=== PATIENT | female | born 1945 | race Hispanic/Latino ===

== ENCOUNTER 2016-05-08 17:02 | Inpatient (IN) | payer MEDICARE ==
--- NOTE | 2016-05-08 19:01 | Emergency Department Report ---
HPI - General Chief Complaint: Seizure Time Seen by Provider: 05/08/16 18:32 - HPI HPI: Room 16 The patient 71-year-old female presenting with chief complaint transient neurological event. History obtained from the patient's daughter who was present at the home events occurred. The daughter states the patient's last known well time was at 16:45. A family member later walked past the patient and spoke to her but the patient's speech sounded garbled. There were no other symptoms noted. There is no reported seizure activity. EMS was called secondary to the patient's garbled speech and was still present upon EMS arrival. Sometime between being transported to the ED and arrival to the ED the patient's speech returned to baseline. The patient is currently asymptomatic. Family states the patient with a history of polio as a child has been dragging her left lower extremity for years Location: [see above] Duration: [see above] Quality: Dysarthria Severity: Moderate Modifying factors: [see above] Context: [see above] Mode of transportation: [not driving] ED Past Medical Hx - Past Medical History Hx Hypertension: Yes Hx CVA: Yes Hx Seizures: Yes Hx COPD: Yes - Surgical History Past Surgical History?: No - Family History Family history: no significant - Social History Smoking Status: Current Every Day Smoker Substance Use Type: None, Alcohol - Medications Home Medications: Home Medications Medication Instructions Recorded Confirmed Last Taken Type Amlodipine Besylate 10 mg PO DAILY 05/08/16 05/08/16 Unknown History Hydralazine HCl [Apresoline TAB] 50 mg PO Q8HR 05/08/16 05/08/16 Unknown History cloNIDine [Catapres] 0.2 mg PO TID 05/08/16 05/08/16 Unknown History levETIRAcetam [Keppra TAB] 500 mg PO BID 05/08/16 05/08/16 Unknown History ED Review of Systems ROS: Stated complaint: SEIZURE Other details as noted in HPI Comment: All other systems reviewed and negative Constitutional: denies: chills, fever Eyes: denies: eye pain, eye discharge, vision change ENT: denies: ear pain, throat pain Respiratory: denies: cough, shortness of breath, wheezing Cardiovascular: denies: chest pain, palpitations Endocrine: no symptoms reported Gastrointestinal: denies: abdominal pain, nausea, diarrhea Genitourinary: denies: urgency, dysuria, discharge Musculoskeletal: denies: back pain, joint swelling, arthralgia Skin: denies: rash, lesions Neurological: other (dysarthria) Psychiatric: denies: anxiety, depression Hematological/Lymphatic: denies: easy bleeding, easy bruising Physical Exam - Physical Exam Vital Signs: Vital Signs 05/08/16 05/08/16 05/08/16 18:03 18:21 18:22 Temperature 97.7 F 97.7 F Pulse Rate 53 L 53 L Respiratory 17 17 Rate Blood Pressure 121/75 Blood Pressure 121/75 [Right] O2 Sat by Pulse 99 99 99 Oximetry Physical Exam: GENERAL: The patient is well-developed well-nourished elderly female lying on stretcher not appearing to be in acute distress. [] HEENT: Normocephalic. Atraumatic. Extraocular motions are intact. Patient has moist mucous membranes. NECK: Supple. Trachea midline CHEST/LUNGS: Clear to auscultation. There is no respiratory distress noted. HEART/CARDIOVASCULAR: Regular. There is no tachycardia. There is no gallop rub or murmur. ABDOMEN: Abdomen is soft, nontender. Patient has normal bowel sounds. There is no abdominal distention. SKIN: There is no rash. There is no edema. There is no diaphoresis. NEURO: The patient is awake, alert, and oriented. The patient is cooperative. The patient has no focal neurologic deficits. The patient has normal speech. Cranial nerves II through XII grossly intact, no drift, foundation digger equal bilaterally. Normal sensation throughout with the exception of the left lower extremity (chronic). Left lower extremities weakness (chronic). MUSCULOSKELETAL: There is no evidence of acute injury. ED Course Vital Signs 05/08/16 05/08/16 05/08/16 18:03 18:21 18:22 Temperature 97.7 F 97.7 F Pulse Rate 53 L 53 L Respiratory 17 17 Rate Blood Pressure 121/75 Blood Pressure 121/75 [Right] O2 Sat by Pulse 99 99 99 Oximetry ED Medical Decision Making - Lab Data Result diagrams: 05/08/16 18:58 05/08/16 18:58 Laboratory Tests 05/08/16 05/08/16 05/08/16 18:58 18:58 18:58 WBC 5.4 RBC 3.84 Hgb 11.7 Hct 35.1 MCV 92 MCH 31 MCHC 33 RDW 14.9 Plt Count 207 Lymph % (Auto) 22.3 Jefferson % (Auto) 5.4 Eos % (Auto) 1.0 Baso % (Auto) 0.5 Lymph # 1.2 Jefferson # 0.3 Eos # 0.1 Baso # 0.0 Seg Neutrophils % 70.8 H Seg Neutrophils # 3.9 PT 12.5 INR 0.94 APTT 35.6 Sodium 140 Potassium 5.1 H Chloride 105.3 Carbon Dioxide 22 Anion Gap 18 BUN 27 H Creatinine 2.0 H Estimated GFR 25 BUN/Creatinine Ratio 13.50 Glucose 107 H Calcium 9.0 Total Creatine Kinase 86 CK-MB (CK-2) 1.6 CK-MB (CK-2) Rel Index 1.8 Troponin T < 0.010 - EKG Data -: EKG Interpreted by Nv EKG shows normal: sinus rhythm Rate: normal - EKG Data When compared to previous EKG there are: previous EKG unavailable Interpretation: other (no ischemic changes seen) - Radiology Data Radiology results: report reviewed (CT head), image reviewed (CT head) CT head (read by radiologist)-previous aneurysm clipping in the left posterior fossa. Deep white matter lucency consistent with fairly extensive chronic microvascular ischemic disease. No evidence of acute infarct or intracranial hemorrhage. - Differential Diagnosis TIA, CVA, ICH Critical care attestation.: If time is entered above; I have spent that time in minutes in the direct care of this critically ill patient, excluding procedure time. ED Disposition Clinical Impression: TIA (transient ischemic attack) Disposition: OP ADMITTED IP TO THIS HOSP Is pt being admited?: Yes Does the pt Need Aspirin: Yes Condition: Fair Referrals: PRIMARY CARE, [Primary Care Provider] - 3-5 Days Time of Disposition: 20:47 (hospitalist notified)
[2016-05-08 19:22] LABS: Basophils % (Auto) 0.5 % (0.0-1.8); Hematocrit 35.1 % (30.3-42.9); Hemoglobin 11.7 gm/dl (10.1-14.3); Mean Corpuscular HGB Conc 33 % (30-34); Mean Corpuscular Hemoglobin 31 pg (28-32); Mean Corpuscular Volume 92 fl (79-97); Platelet Count 207 K/mm3 (140-440); Red Blood Count 3.84 M/mm3 (3.65-5.03); Red Cell Distribution Width 14.9 % (13.2-15.2); White Blood Count 5.4 K/mm3 (4.5-11.0)
[2016-05-08 19:28] LABS: INR 0.94 (0.87-1.13)
[2016-05-08 19:29] LABS: Partial Thromboplastin Time 35.6 Sec. (24.2-36.6)
[2016-05-08 19:35] LABS: Creatine Kinase MB 1.6 ng/mL (0.0-4.0)
[2016-05-08 19:36] LABS: Blood Urea Nitrogen 27 mg/dL (7-17); Carbon Dioxide 22 mmol/L (22-30); Chloride 105.3 mmol/L (98-107); Creatine Kinase 86 units/L (30-135); Glucose 107 mg/dL (65-100); Potassium 5.1 mmol/L (3.6-5.0); Sodium 140 mmol/L (137-145)
--- NOTE | 2016-05-08 19:36 | Cat Scan Report ---
FINAL REPORT EXAM: CT HEAD/BRAIN WO CON HISTORY: dysarthria TECHNIQUE: CT was performed from the foramen magnum through the vertex in the axial plane without the use of intravenous contrast. PRIORS: None. FINDINGS: There is an aneurysm clip in the left paramedian cephalic cistern. There is deep white matter lucency consistent with fairly extensive chronic microvascular ischemic. There is no mass lesion or mass effect. There are no abnormal extra-axial fluid collections. There is no evidence of acute intracranial hemorrhage or infarct. The ventricles are of normal size and configuration for age. The skull and orbits are unremarkable. The visualized paranasal sinuses are clear. IMPRESSION: 1. Previous aneurysm clipping in the left posterior fossa 2. Deep white matter lucency consistent with fairly extensive chronic microvascular ischemic disease 3. No evidence of acute infarct or intracranial hemorrhage
[2016-05-08 19:49] LABS: Anion Gap 18 mmol/L
[2016-05-08] MEDS ORDERED: ASPIRIN PO ONE (20:49)
--- NOTE | 2016-05-08 21:45 | History and Physical Report ---
History of Present Illness Chief complaint: slurred speech History of present illness: 71 YO Female with HTN, CVA, Seizure DO, COPD, Nicotine Dependence, Brain Aneurysm S/P Clipping presents to ED for evaluation. Pt denies any complaints at time of exam. Pt daughter states the patient's last known well time was at 16:45. A family member later walked past the patient and spoke to her but noticed that the patient's speech sounded garbled. EMS notified and patient transported to ED. Pt speech normalized en route. Pt denies fever, chills, CP, Palpitations, syncope, loss of bowel/bladder continence, recent ill contacts, cough,shortness of breath, seizure, vertigo, or recent ill contacts. Past History Past Medical History: COPD, hyperlipidemia, seizures, stroke Past Surgical History: Other (brain surgery) Social history: single, lives with family, smoking. denies: alcohol abuse, prescription drug abuse Family history: no significant family history, other (reviewed) Medications and Allergies Allergies Allergy/AdvReac Type Severity Reaction Status Date / Time No Known Allergies Allergy Verified 05/08/16 22:08 Home Medications Medication Instructions Recorded Confirmed Last Taken Type Amlodipine Besylate 10 mg PO DAILY 05/08/16 05/08/16 Unknown History Hydralazine HCl [Apresoline TAB] 50 mg PO Q8HR 05/08/16 05/08/16 Unknown History cloNIDine [Catapres] 0.2 mg PO TID 05/08/16 05/08/16 Unknown History levETIRAcetam [Keppra TAB] 500 mg PO BID 05/08/16 05/08/16 Unknown History Review of Systems All systems: negative Constitutional: other (slurred speech) Exam - Constitutional Vitals: Temp Pulse Resp BP Pulse Ox 97.7 F 53 L 17 121/75 99 05/08/16 18:22 05/08/16 18:22 05/08/16 18:22 05/08/16 18:22 05/08/16 18:22 General appearance: Present: cachectic - EENT Eyes: Present: PERRL ENT: hearing intact, clear oral mucosa - Neck Neck: Present: supple, normal ROM - Respiratory Respiratory effort: normal Respiratory: bilateral: CTA - Cardiovascular Heart Sounds: Present: S1 & S2. Absent: rub, click - Extremities Extremities: pulses symmetrical, No edema Peripheral Pulses: within normal limits - Abdominal General gastrointestinal: Present: soft, non-tender, non-distended, normal bowel sounds Female genitourinary: Present: normal - Integumentary Integumentary: Present: clear, warm, dry, decreased turgor - Musculoskeletal Musculoskeletal: gait normal, strength equal bilaterally - Psychiatric Psychiatric: appropriate mood/affect, intact judgment & insight - Neurologic Neurologic: CNII-XII intact, moves all extremities Results - Labs CBC & Chem 7: 05/08/16 18:58 05/08/16 18:58 Labs: Abnormal lab results 05/08/16 05/08/16 Range/Units 18:58 18:58 Seg Neutrophils % 70.8 H (40.0-70.0) % Potassium 5.1 H (3.6-5.0) mmol/L BUN 27 H (7-17) mg/dL Creatinine 2.0 H (0.7-1.2) mg/dL Glucose 107 H (65-100) mg/dL Assessment and Plan - Patient Problems (1) TIA (transient ischemic attack) Current Visit: Yes Status: Acute Plan to address problem: Stroke protocol: CT Head, MRI/MRA Head, Echo, carotid doppler, antiplatelet therapy (2) COPD (chronic obstructive pulmonary disease) Current Visit: Yes Status: Chronic Plan to address problem: continue current therapy, no exacerbation at this time. (3) Seizure Current Visit: Yes Status: Acute Plan to address problem: keppra level, supportive care, (4) HTN (hypertension) Current Visit: Yes Status: Acute Plan to address problem: monitor bp q shift, (5) Nicotine dependence Current Visit: Yes Status: Acute Plan to address problem: Pt counseled, Pt refused to pick quit date. (6) DVT prophylaxis Current Visit: Yes Status: Acute
[2016-05-08] MEDS ORDERED: SODIUM CHLORIDE FLUSH SYRINGE 10 ML IV PRN (22:01)
[2016-05-08] MEDS ORDERED: TYLENOL PO PRN (22:01)
[2016-05-08] MEDS ORDERED: ZOFRAN IV PRN (22:01)
[2016-05-09] MEDS ORDERED: NON-FORMULARY (Hydralazine Hcl [Apresoline Tab] 50 MG) PO SCH (06:00)
[2016-05-09] MEDS: APRESOLINE PO SCH ×2 (06:13→18:29)
[2016-05-09] MEDS ORDERED: NON-FORMULARY (Amlodipine Besylate 10 MG) PO SCH (10:00)
[2016-05-09 10:12] LABS: Chloride 106.9 mmol/L (98-107); Potassium 4.4 mmol/L (3.6-5.0)
[2016-05-09] MEDS: ASPIRIN PO SCH (11:03)
[2016-05-09] MEDS: CATAPRES PO SCH ×3 (11:03→20:00)
[2016-05-09] MEDS: KEPPRA PO SCH ×2 (11:03→22:00)
[2016-05-09] MEDS: NORVASC PO SCH (11:04)
--- NOTE | 2016-05-09 13:00 | Progress Note ---
Assessment and Plan Assessment and plan: Slurred speech. Acute ischemic stroke vs TIA. Aspirin. Echo ordered, Carotid Doppler. MRI Brain could not done because of cerebral aneurysm clips. Seizure disorder. On Keppra Hypertension. BP stable on Norvasc, Clonidine and Hydralazine. History of stroke History of Cerebral aneursm s/p clipping. COPD. Stable. DVT Prophylaxis. SCDs only. She is ambulatory. Has history of cerebral aneuyrsm. Full code status. History Interval history: Slurred speech improving, no localized weakness of any extremity Hospitalist Physical - Physical exam Narrative exam: Gen: Awake, not in acute distress HEENT: Normocephalic, atraumatic Neck :supple, no JVD Lungs: Clear to auscultation bilaterally, no crackles or wheeze. Heart: S1 and S2 regular, no murmurs no gallop Abdomen:soft, non-tender, non-distended, normal bowel sounds Ext: No edema, no clubbing or cyanosis Neuro: Awake alert oriented x 3, slurred speech, no focal weakness - Constitutional Vitals: Temp Pulse Resp BP Pulse Ox 98.8 F 62 14 129/69 97 05/09/16 08:01 05/09/16 08:01 05/09/16 08:01 05/09/16 08:01 05/09/16 08:01 General appearance: Present: cachectic Results - Labs CBC & Chem 7: 05/08/16 18:58 05/09/16 07:02 Labs: Laboratory Last Values WBC 5.4 K/mm3 (4.5-11.0) 05/08/16 18:58 RBC 3.84 M/mm3 (3.65-5.03) 05/08/16 18:58 Hgb 11.7 gm/dl (10.1-14.3) 05/08/16 18:58 Hct 35.1 % (30.3-42.9) 05/08/16 18:58 MCV 92 fl (79-97) 05/08/16 18:58 MCH 31 pg (28-32) 05/08/16 18:58 MCHC 33 % (30-34) 05/08/16 18:58 RDW 14.9 % (13.2-15.2) 05/08/16 18:58 Plt Count 207 K/mm3 (140-440) 05/08/16 18:58 Lymph % (Auto) 22.3 % (13.4-35.0) 05/08/16 18:58 Benson % (Auto) 5.4 % (0.0-7.3) 05/08/16 18:58 Eos % (Auto) 1.0 % (0.0-4.3) 05/08/16 18:58 Baso % (Auto) 0.5 % (0.0-1.8) 05/08/16 18:58 Lymph # 1.2 K/mm3 (1.2-5.4) 05/08/16 18:58 Benson # 0.3 K/mm3 (0.0-0.8) 05/08/16 18:58 Eos # 0.1 K/mm3 (0.0-0.4) 05/08/16 18:58 Baso # 0.0 K/mm3 (0.0-0.1) 05/08/16 18:58 Seg Neutrophils % 70.8 % (40.0-70.0) H 05/08/16 18:58 Seg Neutrophils # 3.9 K/mm3 (1.8-7.7) 05/08/16 18:58 PT 12.5 Sec. (12.2-14.9) 05/08/16 18:58 INR 0.94 (0.87-1.13) 05/08/16 18:58 APTT 35.6 Sec. (24.2-36.6) 05/08/16 18:58 Sodium 142 mmol/L (137-145) 05/09/16 07:02 Potassium 4.4 mmol/L (3.6-5.0) 05/09/16 07:02 Chloride 106.9 mmol/L (98-107) 05/09/16 07:02 Carbon Dioxide 20 mmol/L (22-30) L 05/09/16 07:02 Anion Gap 20 mmol/L 05/09/16 07:02 BUN 27 mg/dL (7-17) H 05/09/16 07:02 Creatinine 1.8 mg/dL (0.7-1.2) H 05/09/16 07:02 Estimated GFR 28 ml/min 05/09/16 07:02 BUN/Creatinine Ratio 15.00 % 05/09/16 07:02 Glucose 81 mg/dL (65-100) 05/09/16 07:02 POC Glucose 84 (70-105) 05/09/16 11:47 Calcium 9.0 mg/dL (8.4-10.2) 05/09/16 07:02 Total Creatine Kinase 86 units/L (30-135) 05/08/16 18:58 CK-MB (CK-2) 1.6 ng/mL (0.0-4.0) 05/08/16 18:58 CK-MB (CK-2) Rel Index 1.8 (0-4) 05/08/16 18:58 Troponin T < 0.010 ng/mL (0.00-0.029) 05/08/16 18:58 Triglycerides 95 mg/dL (2-149) 05/09/16 07:02 Cholesterol 143 mg/dL (50-199) 05/09/16 07:02 LDL Cholesterol Direct 52 mg/dL (50-130) 05/09/16 07:02 HDL Cholesterol 72 mg/dL (40-59) H 05/09/16 07:02 Cholesterol/HDL Ratio 1.98 % 05/09/16 07:02
--- NOTE | 2016-05-09 14:39 | Consultation ---
History of Present Illness - Reason for Consult Consult date: 05/09/16 stroke - History of Present Illness spoke to the son about past hx of syncope a/w headaches suspect seizures are issue as well no evidence of recurrent bleeding from aneurysm explained Past History Past Medical History: COPD, hyperlipidemia, seizures, stroke Past Surgical History: Other (brain surgery) Social history: single, lives with family, smoking. denies: alcohol abuse, prescription drug abuse Family history: no significant family history, other (reviewed) Medications and Allergies Allergies Allergy/AdvReac Type Severity Reaction Status Date / Time No Known Allergies Allergy Verified 05/08/16 22:08 Home Medications Medication Instructions Recorded Confirmed Last Taken Type Amlodipine Besylate 10 mg PO DAILY 05/08/16 05/08/16 Unknown History Hydralazine HCl [Apresoline TAB] 50 mg PO Q8HR 05/08/16 05/08/16 Unknown History cloNIDine [Catapres] 0.2 mg PO TID 05/08/16 05/08/16 Unknown History levETIRAcetam [Keppra TAB] 500 mg PO BID 05/08/16 05/08/16 Unknown History Active Meds: Active Medications Acetaminophen (Tylenol) 650 mg PO Q4H PRN PRN Reason: Pain, Mild (1-3) Amlodipine Besylate (Norvasc) 10 mg PO DAILY [facility] Last Admin: 05/09/16 11:04 Dose: Not Given Aspirin (Aspirin) 325 mg PO QDAY [facility] Last Admin: 05/09/16 11:03 Dose: Not Given Clonidine HCl (Catapres) 0.2 mg PO TID [facility] Last Admin: 05/09/16 11:03 Dose: Not Given Hydralazine HCl (Apresoline) 50 mg PO Q8HR [facility] Last Admin: 05/09/16 06:13 Dose: 50 mg Levetiracetam (Keppra) 500 mg PO BID [facility] Last Admin: 05/09/16 11:03 Dose: Not Given Ondansetron HCl (Zofran) 4 mg IV Q8H PRN PRN Reason: N/V unrelieved by Reglan Simvastatin (Zocor) 20 mg PO QHS [facility] Sodium Chloride (Sodium Chloride Flush Syringe 10 Ml) 10 ml IV PRN PRN PRN Reason: LINE FLUSH Exam - Constitutional Vitals: Temp Pulse Resp BP Pulse Ox 98.8 F 62 14 129/69 97 05/09/16 08:01 05/09/16 08:01 05/09/16 08:01 05/09/16 08:01 05/09/16 08:01 Results - Labs CBC & Chem 7: 05/08/16 18:58 05/09/16 07:02 Labs: Abnormal lab results 05/09/16 05/09/16 Range/Units 07:02 07:02 Carbon Dioxide 20 L (22-30) mmol/L BUN 27 H (7-17) mg/dL Creatinine 1.8 H (0.7-1.2) mg/dL HDL Cholesterol 72 H (40-59) mg/dL
[2016-05-09] MEDS ORDERED: ZOCOR PO SCH (22:00)
--- NOTE | 2016-05-10 00:10 | Admit Criteria Form ---
Admission Criteria Documentation: TRANSIENT ISCHEMIC ATTACK (TIA) Clinical Indications for Admission to Inpatient Care (Place 'X' for any and all applicable criteria): Admission is indicated for ANY ONE of the following(1)(2)(3)(4)(5): [ ]I. Immediate inpatient procedure is needed (eg, endarterectomy). [ X]II. Inpatient admission required rather than observation care (Also use Transient Ischemic Attack (TIA): Observation Care Criteria as appropriate) because of ANY ONE of the following: [ X]a) Focal neurologic signs or symptoms persist or recurring [ ]b) Cardiac arrhythmias of immediate concern [ ]c) Clinically significant cardiac disorder identified that requires inpatient care (eg, severe valvular disease, atrial myxoma, cardiomyopathy) [ ]d) Hypertension requiring inpatient treatment [ ]e) Parenteral anticoagulation required (eg, alternative forms of anticoagulation not appropriate or not feasible) as indicated by ALL of the following(13): [ ]i) Temporary subtherapeutic anticoagulation unacceptable because of high risk of short-term venous or arterial thromboembolism due to ANY ONE of the following(14)(15)(16): [ ]1) Atrial fibrillation suspected as etiology of TIA(17)(18)(19)(20)(21) [ ]2) Venous thromboembolism within past 12 months [ ]3) Underlying malignancy [ ]4) Patient with mechanical cardiac valve(22)( 23) [ ]5) Underlying hypercoagulable state (eg, protein C or protein S deficiency antithrombin deficiency, antiphospholipid antibodies) [ ]6) Patient at temporary high risk of thromboembolism (eg, status post orthopedic surgery) [ ]ii) Contraindications to outpatient use of "bridging" agent or alternative oral anticoagulant[B] as indicated by ALL of the following: [ ]1) Contraindication to outpatient use of low- molecular-weight heparin as "bridging" agent as indicated by ANY ONE of the following(15): [ ]A. Documented current or history of heparin-induced thrombocytopenia(24) [ ]B. Severe thrombocytopenia (eg, platelet count less than 50,000/mm3 (04c914/L) [ ]C. Documented allergy to heparin, low- molecular-weight heparin, or pork products [ ]D. Renal failure (creatinine clearance less than 30 mL/min/1.73m2 (0.50mL/sec/1.73m2) or on dialysis) [ ]E. Inability to manage self-injection ( eg, by patient, caregiver, or visiting nurse) [ ]2) Contraindication to outpatient use of fondaparinux as "bridging" agent as indicated by ANY ONE of the following(25)(26 )(27)(28): [ ]A. Severe thrombocytopenia (eg, platelet count less than 50,000/mm3 (50 x109/L)) [ ]B.Hypersensitivity to fondaparinux, related drugs, or product components [ ]C.Renal failure (creatinine clearance less than 30 mL/min/1.73m2 (0.50mL/sec/1.73m2) or on dialysis) [ ]D.Inability to manage self-injection ( eg, by patient, caregiver, or visiting nurse [ ]3. Oral direct thrombin inhibitor (eg, dabigatran) or oral coagulation factor Xa inhibitor (eg, rivaroxaban, apixaban) not appropriate as oral anticoagulation (eg, indication not appropriate) or contraindicated (eg, hypersensitivity, creatinine clearance less than 15 mL/min/1.73m2 ( 0.25 mL/sec/1.73m2) or on dialysis). [ ]f) Continuous IV infusion of anticoagulant, platelet inhibitor, vasoactive or antiarrhythmia(18)(19) [ ]g) Other condition, treatment, or monitoring requiring inpatient admission [ ]III. Contraindications and/or Inappropriate clinical situations for Observational Care in patients with Transient Ischemic Attack (TIA), when ANY ONE of the following is required: [ ]a) Patient with persistent or severe neurological deficit 24 [ ]b) Patient with acute CVA or other identified pathology should be admitted to inpatient for further care 25 [X ]IV. General contraindications and/or Inappropriate clinical situations for Observational Care in patients with Transient Ischemic Attack (TIA), when ANY ONE of the following is required: [ ]a) Prediction of prolongation of LOS based on ANY ONE of the following may be considered as a contraindication for observational care 2, 3, 4, 5, 6, 7, 8, 9, 10, 11 [ ]i) Age > 65 yrs. [ ]ii) Patient arriving by ambulance [ ]iii) Patient with high acuity [ ]iv) Patient requiring vital sign monitoring [ ]v) Patient on IV medication [ ]b) Systolic blood pressures 180mmHg 3,12 [ X]c) Patient with altered mental status including delirium and other alteration of consciousness, (3) [ ]d) Patient whose discharge disposition will be to a intermediate home or rehabilitation home should not be managed in Emergency Department Observation Unit. CMS rule requires 3 days hospital stay before such placement.3,13 [ ]e) Patient with failure to thrive due to broad array of etiologies 3,16,17 [ ]f) Inability to ambulate 3,14 Extended stay beyond goal length of stay may be needed for(4)(30)(32): [ ]a) Parenteral anticoagulation required [ ]b) Dangerous arrhythmia [ ]c) Cardiac valvular disorder, atrial myxoma, cardiomyopathy [ ]d) Uncontrolled severe hypertension [ ]e) Severe carotid stenosis [ ]f) Active comorbidities (eg, heart failure) [ ]g) Extracranial vertebrobasilar disease(29) [ ]h) Clinical evolution of TIA into cerebrovascular accident (stroke) The original [employer] content created by [employer] has been revised. The portions of thecontent which have been revised are identified through the use of italic text or in bold, and [employer] has neither reviewed nor approved the modified material. All other unmodified content is copyright [employer]. Please see references footnoted in the original [employer] edition 2016 Admission Criteria Met: Yes
[2016-05-10] MEDS: APRESOLINE PO SCH ×2 (02:20→06:49)
[2016-05-10 07:26] LABS: BUN/Creatinine Ratio 17.05; Calcium 8.5 mg/dL (8.4-10.2); Chloride 101.3 mmol/L (98-107); Potassium 4.3 mmol/L (3.6-5.0)
[2016-05-10 09:13] VITALS: BP 139/76
--- NOTE | 2016-05-10 10:43 | Discharge Summary ---
[id number] 05/10/16 Attending physician: EVANGELISTA BERRIOS 05/09/16 12:59 Consult to Physician [CONS] Routine Consulting Provider: YONNY LEONE Reason For Exam: slurred speech Place consult to:: Dr. Leone Notified:: answering machine Phone number called:: [phone] Was contact made?: Yes If yes, spoke with:: geronimo Time called:: 14:07 05/10/16 07:00 Speech Therapy Evaluation and Treat [CONS] Routine Reason For Exam: slurred speech Primary care physician: RUSTAM SCHAEFER Hospitalization Condition: Fair Disposition: DISCHARGED TO HOME OR SELFCARE - Discharge Diagnoses (1) TIA (transient ischemic attack) Status: Acute (2) HTN (hypertension) Status: Acute (3) COPD (chronic obstructive pulmonary disease) Status: Chronic (4) Seizure disorder Status: Acute Core Measure Documentation - Palliative Care Palliative Care/ Comfort Measures: Not Applicable - Core Measures Any of the following diagnoses?: stroke - Stroke Discharge Requirements Statin for LDL = or >70 mg/dl on DC: Yes Anticoag for atrial fib/atrial flutter: Not Applicable Antithrombotic for ischemic stroke: Yes Exam - Constitutional Vitals: Temp Pulse Resp BP Pulse Ox 97.7 F 60 20 139/76 99 05/10/16 08:12 05/10/16 08:12 05/10/16 08:12 05/10/16 08:12 05/10/16 08:12 Plan Activity: no restrictions Diet: low fat, low cholesterol, low salt Additional Instructions: 1.Follow with PCP in 1 week. 2.Follow up with Dr. Leone in 1 week. Follow up with: PRIMARY CARE, [Referring] - 3-5 Days Prescriptions: Aspirin EC [Aspirin Enteric Coated TAB] 81 mg PO QDAY #30 tablet.
[2016-05-10] MEDS: NORVASC PO SCH (12:30)
[2016-05-10] MEDS: KEPPRA PO SCH (12:30)
[2016-05-10] MEDS: CATAPRES PO SCH (12:30)
[2016-05-10] MEDS: ASPIRIN PO SCH (12:30)
--- NOTE | 2016-05-10 14:23 | Echocardiography Report ---
Transthoracic Echocardiogram BP: 131/67 Conclusions *The left ventricular chamber size is normal. *Global left ventricular wall motion and contractility are within normal limits. *The estimated ejection fraction is 55-60%. *Abnormal left ventricular diastolic filling is observed, consistent with impaired relaxation. *Mild aortic cusp sclerosis is present. Findings Left Ventricle: The left ventricular chamber size is normal. Global left ventricular wall motion and contractility are within normal limits. Global left ventricular systolic function is normal. The estimated ejection fraction is 55-60%. Abnormal left ventricular diastolic filling is observed, consistent with impaired relaxation. Left Atrium: The left atrium is normal in size with no visual thrombus identified. Right Ventricle: The right ventricular cavity size is normal. The right ventricular global systolic function is normal. Right Atrium: The right atrium appears normal. The interatrial septum appears normal. Aortic Valve: The aortic valve is trileaflet. Mild aortic cusp sclerosis is present. There is no evidence of aortic regurgitation. There is no evidence of aortic stenosis. Mitral Valve: The mitral valve leaflets appear normal. There is no evidence of mitral regurgitation. There is no evidence of mitral stenosis. Tricuspid Valve: The tricuspid valve leaflets are normal. There is mild tricuspid regurgitation. There is no tricuspid stenosis. Pulmonic Valve: The pulmonic valve appears normal. There is no evidence of pulmonic regurgitation. There is no pulmonic stenosis. Pericardium: There is no pericardial effusion. Aorta: There is no dilatation of the ascending aorta. There is no dilatation of the aortic arch. There is no dilatation of the descending thoracic aorta. There is no dilatation of the aortic root. Venous: The inferior vena cava appears normal in size. Measurements Chambers MM Name Value Normal Range Ao root diameter (MM) 2.5 cm (2 - 3.7) AV cusp separation (MM) 1.8 cm (1.5 - 2.6) Chambers 2D Name Value Normal Range IVSd (2D) 1.33 cm (0.6 - 1.1) LVPWd (2D) 1.34 cm (0.6 - 1.1) IVS:LVPW ratio (2D) 0.99 ratio - LVIDd (2D) 4.38 cm (3.7 - 5.6) LVIDs (2D) 3.29 cm (2 - 3.8) LV FS (Teichholz) (2D) 24.9 % - LV FS (cube) (2D) 24.9 % - EF Teichholz (2D) 49.5 % - LA dimension (AP) 2D 3 cm (1.9 - 4) Volumes/Mass Name Value Normal Range LA ESV SP 4CH (MOD) 56 ml - LA ESV SP 2CH (MOD) 64 ml - LA ESV BP (MOD) 64 ml - LA ESV BP (MOD) index 45.1 ml/m2 - LV EDV SP 4CH (MOD) 108 ml - LV ESV SP 4CH (MOD) 44 ml - EF SP 4CH (MOD) 59 % - LV EDV SP 2CH (MOD) 90 ml - LV ESV SP 2CH (MOD) 39 ml - EF SP 2CH (MOD) 57 % - LV EDV BP 106 ml - LV ESV BP 42 ml - BP EF (MOD) 60 % - Diastolic/Systolic Function Name Value Normal Range MV E-wave Vmax 0.82 m/sec - MV deceleration time 204 msec - MV A-wave Vmax 1.04 m/sec - MV E:A ratio 0.8 ratio - LV septal e' Vmax 0.04 m/sec - LV lateral e' Vmax 0.05 m/sec - LV E:e' septal ratio 20.1 ratio - LV E:e' lateral ratio 17.6 ratio - Aortic Valve Name Value Normal Range AV VTI 29.2 cm - AV mean gradient 5 mmHg - LVOT diameter 2.1 cm - LVOT VTI 19 cm - LVOT mean gradient 3 mmHg - SV LVOT 66 ml - LOUISE (continuity VTI) 2.25 cm2 - Tricuspid Valve Name Value Normal Range TR Vmax 2.37 m/sec - TR peak gradient 22 mmHg - RAP 5 mmHg - RVSP 27 mmHg -
--- NOTE | 2016-05-12 07:47 | Vascular Lab Report ---
CAROTID DUPLEX STUDY: RIGHT PSVEDV CCA [id number] CCA DIST:[id number] ICA PROX:[id number] ICA MID:[id number] ICA DIST:[id number] ECA: 85 VERT: 88 25 LEFT PSVEDV CCA PROX:5812 CCA DIST:[id number] ICA PROX:3514 ICA MID:[id number] ICA DIST:[id number] ECA: 47 VERT: 41 9 REASON FOR EXAM: Carotid artery stenosis. COMMENTS ON THE RIGHT: Doppler frequency analysis is consistent with 16 to 49 percent diameter reduction of the internal carotid artery. Minimal amount of plaque is seen. The common carotid artery is patent. The external carotid artery is patent. The vertebral artery has antegrade flow. COMMENTS ON THE LEFT: Doppler frequency analysis is consistent with 16 to 49 percent diameter reduction of the internal carotid artery. Minimal amount of plaque is seen. The common carotid artery is patent. The external carotid artery is patent. The vertebral artery has antegrade flow. IMPRESSION: Less than 50% diameter reduction in the internal carotid arteries bilaterally. Consider repeat carotid artery duplex in 12 months.
--- NOTE | 2016-05-13 13:58 | Query- General ---
Deajuana Mejia Date:_05/13/16 Director Of Graduate Medical Education/CDS:_Rani/Everton Curiel Phone#:_[phone] Exercise your independent professional judgment when responding to this query. Questions asked do not imply a particular answer is desired or expected. We greatly appreciate your clarification on this issue. Clinical Documentation States: 68 Y/O Female admitted on 05/08/16 with Hx of HTN, CVA, Seizure DO, COPD, Brain aneurysm S/P Clipping presents via EMS to the ED for evaluation. A family member reported that the patients speech was garbled. Patient's speech normalized en route per EMS. Discharge Diagnosis: TIA Clinical Findings Show (include reference to source document): Carotid Doppler shows less than 50% occlusion bilaterally ECHO: EF 55-60%, abnormal left ventricular diastolic filling defect observed, consistent with impaired relaxation. Given the above clinical scenario can you please provide an appropriate diagnosis based on your knowledge of the patient: PHYSICIAN RESPONSE: [ ] Embolism [x ] Hypoxia [ ] Other [ ] Unable to determine Present on Admission: [x ] Yes (Y) [ ] Clinically undeterminable (W) [ ]No(N) Please also document response in your Progress Notes and/or Discharge Summary and indicate if the condition was present on admission. MTDD
== END 2016-05-10 12:45 | disposition home or self-care (01) | DRG 69 ==
LOC: ED 17:02 → 3A 22:01
PROVIDERS: ADMIT Internal Medicine; ATTEND Internal Medicine
DX: G45.9 Transient cerebral ischemic attack, unspecified (principal); R09.02 Hypoxemia; J44.9 Chronic obstructive pulmonary disease, unspecified; I10 Essential (primary) hypertension; F17.200 Nicotine dependence, unspecified, uncomplicated; G40.909 Epilepsy, unspecified, not intractable, without status epilepticus; E78.5 Hyperlipidemia, unspecified
CPT/HCPCS: 36415; 70450; 80048; 80061; 80177; 82550; 82553; 82962; 84484; 85025; 85610; 85730; 93005; 93010; 93306; 93880; 99406